=== PATIENT | male | born 1990 | race Caucasian/White ===

== ENCOUNTER 2020-12-26 19:40 | Observation (INO) | payer OTHER, SELFPAY ==
[2020-12-26 19:40] VITALS: PULSE 104; RESP 18; TEMP 36.9; O2SAT 99; BMI 26.3
[2020-12-26 19:43] VITALS: BP 138/77
[2020-12-26 20:31] LABS: ALB/GLOB Ratio 1.1 RATIO (0.9-2.4); AST(SGOT) 14 U/L (15-37); Alanine Aminotransfer ALT/SGPT 23 U/L (16-61); Albumin, Serum 4.2 g/dL (3.2-5.0); Alkaline Phosphatase 124 U/L (45-117); Anion Gap 6 (5-15); BUN 9 mg/dL (7-18); BUN/Creat Ratio 7.4 RATIO (10-20); Calcium,Total 9.1 mg/dL (8.5-10.1); Chloride 106 mmol/L (98-107); Creatinine, Serum 1.22 mg/dL (0.70-1.30); EST Glomerular Filtration Rate 74 mL/min (>60); Est Glom Filt Rate - Afr Amer 90 mL/min (>60); Estimated Creatinine Clearance 83.53 ml/min; Globulin 3.7 g/dL (2.2-4.2); Glucose 97 mg/dL (74-106); Potassium 4.2 mmol/L (3.5-5.1); Protein, Total 7.9 g/dL (6.4-8.2); Sodium Level 140 mmol/L (136-145)
[2020-12-26 20:40] LABS: Amphetamine Urine VISTA NEGATIVE (<1000 ng/mL); Barbiturate Urine VISTA NEGATIVE (< 200 ng/mL); Benzodiazepine Urine VISTA NEGATIVE (< 200 ng/mL); Cocaine Urine VISTA POSITIVE (< 300 ng/mL); Ecstacy Urine VISTA NEGATIVE (< 500 ng/mL); Methadone Urine VISTA NEGATIVE (< 300 ng/mL); PCP Urine VISTA NEGATIVE (< 25 ng/mL); THC Urine VISTA POSITIVE (< 50 ng/mL); Vista UDS pH Range 4
--- NOTE | 2020-12-26 20:54 | EX.ED.DYSGE1 ---
HPI History of Present Illness Chief Complaint: Substance Abuse Informant: patient Narrative Narrative: Patient is a 30-year-old previously healthy male who presents to the emergency department to detox for alcohol and marijuana. He states that he has been drinking heavily over the past 3 years. He typically drinks around 24 pack of beer per day as well as a few shots of liquor. He has cut back recently. He denies any other drug use except for the marijuana. He does smoke cigarettes. He states that he recently switched to third shift. The end of his shift he was getting shaky. He has never been through a detox program before in the past. Patient last drink was today. He denies any symptoms at this time. PFSH PFS Home Medications NK 12/26/20 [History Last Taken Unknown] Allergy/AdvReac Type Severity Reaction Status Date / Time No Known Allergies Allergy Verified 12/26/20 19:41 Social History Smoking Status: Current every day smoker tobacco type: cigarettes ROS ROS ED Constitutional Constitutional ED: Denies chills or fever(s) Eyes Eyes: Denies change in vision ENT ENT ED: Denies epistaxis or rhinorrhea Cardiovascular Cardiovascular: Denies chest pain or palpitations Respiratory/Chest Respiratory/Chest: Denies cough, dyspnea or dyspnea on exertion Gastrointestinal Gastrointestinal: Denies abdominal pain, diarrhea, nausea or vomiting Genitourinary Genitourinary ED: Denies dysuria, hematuria or urinary frequency Musculoskeletal Musculoskeletal: Denies back pain or neck pain Integumentary Denies rash Neurologic Neurologic: Denies dizziness, headache(s) or weakness EXAM Physical Exam Const Vital Signs: 12/26/20 19:40 12/26/20 19:43 12/26/20 20:56 Temperature 98.5 F Temperature Source Temporal Pulse Rate 104 H Respiratory Rate 18 16 Blood Pressure 138/77 H Blood Pressure Mean 97 Pulse Ox 99 Positive well nourished and well developed General Appearance ED: well developed and NAD HEENT Reports normocephalic, head/scalp atraumatic and moist mucous membranes Eyes PERRL and EOMs intact bilaterally Neck supple Chest Wall inspection of chest normal Resp normal respiratory effort and clear to auscultation bilaterally Auscultation: Negative for rales, rhonchi or wheezes Cardio regular rate, regular rhythm and no murmurs GI normal to inspection, nondistended, normoactive bowel sounds and non-tender Palpation: soft Extremity normal to inspection General Extremety ED: Negative for edema or tenderness General Extremity: Negative for edema Neuro oriented x3, CN's II-XII intact bilaterally and no sensory deficits noted Sensorium / Orientation: alert Motor Exam: strength 5/5 throughout Psych mental status grossly normal Skin no rashes or lesions noted MDM MDM MDM Narrative Medical decision making narrative: Patient presents to the emergency department to detox from alcohol. On arrival to the ED vital signs within normal limits. No acute distress. His alcohol level is 7. He is positive for cocaine and cannabinoids. He did admit to the cannabinoids but not the cocaine. Rest lab work reveal a significant acute abnormality. At this time will bring to the hospital for further evaluation and management. He otherwise has been stable throughout ED stay. Lab Data Labs: Laboratory Results - last 24 hr 12/26/20 12/26/20 12/26/20 19:46 20:05 20:05 WBC 7.7 RBC 5.62 Hgb 16.2 Hct 47.9 MCV 85.2 MCH 28.8 MCHC 33.8 RDW Std Deviation 39.2 RDW Coeff of David 12.7 Plt Count 322 MPV 9.4 Immature Gran % (Auto) 0.300 Neut % (Auto) 56.7 Lymph % (Auto) 31.4 [place] % (Auto) 6.8 Eos % (Auto) 4.3 Baso % (Auto) 0.5 Absolute Neuts (auto) 4.4 Absolute Lymphs (auto) 2.43 Nucleated RBC % 0 Sodium 140 Potassium 4.2 Chloride 106 Carbon Dioxide 28.0 Anion Gap 6 BUN 9 Creatinine 1.22 Estim Creat Clear Calc 83.53 Est GFR (MDRD) Af Amer 90 Est GFR (MDRD) Non-Af 74 BUN/Creatinine Ratio 7.4 L Glucose 97 Calcium 9.1 Total Bilirubin 0.60 AST 14 L ALT 23 Alkaline Phosphatase 124 H Total Protein 7.9 Albumin 4.2 Globulin 3.7 Albumin/Globulin Ratio 1.1 Urine Opiates Screen NEGATIVE Urine Methadone Screen NEGATIVE Ur Barbiturates Screen NEGATIVE Ur Phencyclidine Scrn NEGATIVE Ur Amphetamines Screen NEGATIVE U Methamphetamin-MDMA NEGATIVE U Benzodiazepines Scrn NEGATIVE Urine Cocaine Screen POSITIVE H U Cannabinoids Screen POSITIVE H Ur Drug Screen Comment Ethyl Alcohol 12/26/20 20:05 WBC RBC Hgb Hct MCV MCH MCHC RDW Std Deviation RDW Coeff of David Plt Count MPV Immature Gran % (Auto) Neut % (Auto) Lymph % (Auto) [place] % (Auto) Eos % (Auto) Baso % (Auto) Absolute Neuts (auto) Absolute Lymphs (auto) Nucleated RBC % Sodium Potassium Chloride Carbon Dioxide Anion Gap BUN Creatinine Estim Creat Clear Calc Est GFR (MDRD) Af Amer Est GFR (MDRD) Non-Af BUN/Creatinine Ratio Glucose Calcium Total Bilirubin AST ALT Alkaline Phosphatase Total Protein Albumin Globulin Albumin/Globulin Ratio Urine Opiates Screen Urine Methadone Screen Ur Barbiturates Screen Ur Phencyclidine Scrn Ur Amphetamines Screen U Methamphetamin-MDMA U Benzodiazepines Scrn Urine Cocaine Screen U Cannabinoids Screen Ur Drug Screen Comment Ethyl Alcohol 7.0 Discharge Plan Dx/Rx/DC Orders Clinical Impression: Alcohol abuse Disposition Disposition: Acute Care [facility]
[2020-12-26 20:56] VITALS: RESP 16
--- NOTE | 2020-12-26 20:58 | HP.PCM.HOS_ITS ---
HPI - General HPI Narrative JENNIFER ROQUE, is a 30 M with a PMH as outlined who was admitted via the ED on 12/26/2020 for acute alcohol detox. He has been drinking heavily for the past 3 years,a nd drinks about 24 pack beer a day. He also drinks a few shots of liquor. last drink was today. He has switched to the third shift at work and say s after work, he has tremors. He also uses marijuana. Vitals were stable, and urine tox was positive for cocaine and mariuana, though he denied using cocaine. Serum alcohol level was 7. He has never been through detox before he states his last drink was on the morning of admission. He has been admitted to manage for acute alcohol detox. [facility] Home Medications NK 12/26/20 [History Last Taken Unknown] Allergy/AdvReac Type Severity Reaction Status Date / Time No Known Allergies Allergy Verified 12/26/20 19:41 Social History Smoking Status: Current every day smoker tobacco type: cigarettes ROS Constitutional Constitutional: Denies anorexia, change in weight, chills, fatigue, fever(s) or malaise Eyes Eyes: Denies double vision ENT HEENT: Denies dysphagia, hearing loss, nasal congestion or nasal discharge Cardiovascular Cardiovascular: Denies chest pain, dyspnea on exertion, lightheadedness, orthopnea, palpitations or paroxysmal nocturnal dyspnea Respiratory/Chest Respiratory/Chest: Denies cough, productive cough, shortness of breath at rest or shortness of breath with exertion Gastrointestinal Gastrointestinal: Denies abdominal pain, constipation, dyspepsia, hematemesis, loose stools, nausea or vomiting Genitourinary Genitourinary: Denies burning urination or urinary frequency Musculoskeletal Musculoskeletal: Denies back pain Neurologic Neurologic: Denies confusion Psychiatric Psychiatric: Denies anxiety Endocrine Endocrinology: Denies change in body appearance Hematologic/Lymphatic Hematologic/Lymphatic: Denies anemia Vital Signs Vital Signs Vital Signs: 12/26/20 19:40 12/26/20 19:43 12/26/20 20:56 Temperature 98.5 F Temperature Source Temporal Pulse Rate 104 H Respiratory Rate 18 16 Blood Pressure 138/77 H Blood Pressure Mean 97 Pulse Ox 99 Weight Weight: 168 lb Body Mass Index (BMI) 26.3 Physical Exam Const alert, oriented x3 and no apparent distress General Appearance: cooperative HEENT normocephalic, head/scalp atraumatic, hearing grossly normal bilaterally and moist oral mucous membranes Eyes PERRL, EOMs intact bilaterally and conjunctivae normal Neck no lymphadenopathy and supple Resp normal respiratory effort and clear to auscultation bilaterally Cardio regular rate, regular rhythm, S1 normal heart sound, S2 normal heart sound and no murmurs GI normal to inspection, nondistended, normoactive bowel sounds, soft to palpation, non-tender and non-distended Extremity normal to inspection, full ROM and no clubbing, cyanosis or edema Peripheral Pulses: Yes pulses 2+ throughout Skin no rashes or lesions noted Neuro oriented x3 Sensorium / Orientation: awake and alert Psych affect normal Results Lab / Micro Data Result Diagrams: 12/26/20 20:05 12/26/20 20:05 Labs: Laboratory Results - last 24 hr 12/26/20 19:46: Urine Opiates Screen NEGATIVE, Urine Methadone Screen NEGATIVE, Ur Barbiturates Screen NEGATIVE, Ur Phencyclidine Scrn NEGATIVE, Ur Amphetamines Screen NEGATIVE, U Methamphetamin-MDMA NEGATIVE, U Benzodiazepines Scrn NEGATIVE, Urine Cocaine Screen POSITIVE H, U Cannabinoids Screen POSITIVE H, Ur Drug Screen Comment 12/26/20 20:05: WBC 7.7, RBC 5.62, Hgb 16.2, Hct 47.9, MCV 85.2, MCH 28.8, MCHC 33.8, RDW Std Deviation 39.2, RDW Coeff of David 12.7, Plt Count 322, MPV 9.4, Immature Gran % (Auto) 0.300, Neut % (Auto) 56.7, Lymph % (Auto) 31.4, [place] % (Auto) 6.8, Eos % (Auto) 4.3, Baso % (Auto) 0.5, Absolute Neuts (auto) 4.4, Absolute Lymphs (auto) 2.43, Nucleated RBC % 0 12/26/20 20:05: Sodium 140, Potassium 4.2, Chloride 106, Carbon Dioxide 28.0, Anion Gap 6, BUN 9, Creatinine 1.22, Estim Creat Clear Calc 83.53, Est GFR (MDRD) Af Amer 90, Est GFR (MDRD) Non-Af 74, BUN/Creatinine Ratio 7.4 L, Glucose 97, Calcium 9.1, Total Bilirubin 0.60, AST 14 L, ALT 23, Alkaline Phosphatase 124 H, Total Protein 7.9, Albumin 4.2, Globulin 3.7, Albumin/Globulin Ratio 1.1 12/26/20 20:05: Ethyl Alcohol 7.0 Assessment & Plan Assessment/Plan (1) Alcohol withdrawal delirium, acute, mixed level of activity: PLAN: #Acute alcohol withdrawal * admit to med surg * start on alcohol withdrawal protocol with phenobarbital * Thiamine, folic acid and multivite * Monitor CIWA score * adjunctive medication for supportive relief * #Polysubstance abuse * Patient also uses marijuana and urine tox was positive for cocaine. Counseled to quit. * DVT prophylaxis: Low risk. Encouraged to ambulate. Charges/Coding Visit Charges Inpatient E&M: 65691 Init Hosp L3
[2020-12-26 21:23] VITALS: BP 139/79; PULSE 80; RESP 16; TEMP 36.7; O2SAT 98
[2020-12-26 21:39] VITALS: BMI 24.7
[2020-12-26 21:44] VITALS: BP 124/77; PULSE 81; RESP 16; TEMP 36.8; O2SAT 99
[2020-12-26] MEDS: Phenobarbital 32.4 MG Tablet 64.8 MG PO (22:44)
[2020-12-27] MEDS: Phenobarbital 32.4 MG Tablet 64.8 MG PO ×6 (02:25→21:47)
[2020-12-27 02:30] VITALS: BP 118/70; PULSE 60; RESP 16; TEMP 36.7; O2SAT 99
--- NOTE | 2020-12-27 06:52 | PN.HOSP_ITS ---
Subjective Subjective Patient with no acute events following admission initiation of alcohol withdrawal protocol. He notes tremors have significantly lessened and that he slept well. Discussed frankly his urine drug screen with positive cocaine and he denies knowledge of using. He does state that he recently transition to a purchases cannabis from and does smoke this frequently. Discussed at length importance of clean status. Patient denies fevers, chills, nausea, emesis, abdominal pain, chest pain or dyspnea. Objective Data Objective Data Vital Signs: Vital Signs Temp Pulse Resp BP Pulse Ox 98.1 F 60 16 118/70 99 12/27/20 02:30 12/27/20 02:30 12/27/20 02:30 12/27/20 02:30 12/27/20 02:30 Oxygen Delivery Method Room Air Weight: 158 lb Body Mass Index (BMI) 24.7 Lab / Micro Data Result Diagrams: 12/26/20 20:05 12/26/20 20:05 Labs: Laboratory Results - last 24 hr 12/26/20 19:46: Urine Opiates Screen NEGATIVE, Urine Methadone Screen NEGATIVE, Ur Barbiturates Screen NEGATIVE, Ur Phencyclidine Scrn NEGATIVE, Ur Amphetamines Screen NEGATIVE, U Methamphetamin-MDMA NEGATIVE, U Benzodiazepines Scrn NEG ATIVE, Urine Cocaine Screen POSITIVE H, U Cannabinoids Screen POSITIVE H, Ur Drug Screen Comment 12/26/20 20:05: WBC Cancelled, Corrected WBC Cancelled, RBC Cancelled, Hgb Cancelled, Hct Cancelled, MCV Cancelled, MCH Cancelled, MCHC Cancelled, RDW Std Deviation Cancelled, RDW Coeff of David Cancelled, Plt Count Cancelled, MPV Ca ncelled, Immature Gran % (Auto) Cancelled, Neut % (Auto) Cancelled, Lymph % (Auto) Cancelled, [place] % (Auto) Cancelled, Eos % (Auto) Cancelled, Baso % (Auto) Cancelled, Absolute Neuts (auto) Cancelled, Absolute Lymphs (auto) Cancelled, Total Counted Cancelled, Neutrophils % (Manual) Cancelled, Band Neutrophils % Cancelled, Lymphocytes % (Manual) Cancelled, Monocytes % (Manual) Cancelled, Eosinophils % (Manual) Cancelled, Basophils % (Manual) Cancelled, Metamyelocytes % Cancelled, Myelocytes % Cancelled, Promyelocytes % Cancelled, Blast Cells % Cancelled, Plasma Cell % (Manual) Cancelled, Other Cells % Cancelled, Nucleated RBC % Cancelled, Nucleated RBCs/100 WBC Cancelled, Differential Comment Cancelled, Diff Path Review Cancelled, Hypersegmented Neuts Cancelled, Atypical Lymphocytes Cancelled, Reactive Lymphocytes Cancelled, Smudge Cells Cancelled, Toxic Granulation Cancelled, Toxic Vacuolation Cancelled, Dohle Bodies Cancelled, [place] Rods Cancelled, Platelet Estimate Cancelled, Plt Morphology Comment Cancelled, RBC Morphology Cancelled, Polychromasia Cancelled, Hypochromasia Cancelled, Poikilocytosis Cancelled, Basophilic Stippling Cancelled, Anisocytosis Cancelled, Microcytosis Cancelled, Macrocytosis Cancelled, Spherocytes Cancelled, Sickle Cells Cancelled, Target Cells Cancelle d, Tear Drop Cells Cancelled, Ovalocytes Cancelled, Stomatocytes Cancelled, [place] Bodies Cancelled, [place] Cells Cancelled, Bite Cells Cancelled, Crenated Cell Cancelled, Acanthocytes (Spur) Cancelled, Rouleaux Cancelled, Schistocytes Cancelled 12/26/20 20:05: Sodium 140, Potassium 4.2, Chloride 106, Carbon Dioxide 28.0, Anion Gap 6, BUN 9, Creatinine 1.22, Estim Creat Clear Calc 83.53, Est GFR (MDRD) Af Amer 90, Est GFR (MDRD) Non-Af 74, BUN/Creatinine Ratio 7.4 L, Glucose 97, Calcium 9.1, Total Bilirubin 0.60, AST 14 L, ALT 23, Alkaline Phosphatase 124 H, Total Protein 7.9, Albumin 4.2, Globulin 3.7, Albumin/Globulin Ratio 1.1 12/26/20 20:05: Ethyl Alcohol 7.0 Physical Exam Narrative Physical Examination: General: Awake, alert, oriented x 3 and cooperative, seated upright in the medical surgical bed in no apparent distress. Skin: Normal color, normal turgor, no icterus, no cyanosis. HEENT: AT/NC, EOMI, PERRLA, MMM. Lungs: CTA bilaterally, moderate effort, mild decrease BL bases, no rales, ronchi or wheezing. Heart: Regular rate and rhythm; no gallop, rub audible. Abdomen: Soft, NTTP, ND, normal BS. Extremities: No cyanosis, clubbing, or edema. Neurological: Patient awake, alert, oriented as noted, cognitive function intact; pupils equally reactive to light and accommodation, cranial nerves II- XII grossly normal, moving all 4 extremities, no focal deficits, strength preserved, no evidence of any withdrawal symptoms including tremors. Psychiatric: Affect appears normal, extremely tearful, no acute evidence of depressive or anxiety feelings. Assessment & Plan Assessment/Plan (1) Alcohol withdrawal delirium, acute, mixed level of activity: PLAN: The patient is a 30 y/o M w/ PMHx: EtOH abuse (24 pack beer daily x 3 years), Cannabis usage, Tobacco use who presents to the [facility] ED on 12/26/20 with acute EtOH withdrawal. 1. Acute EtOH Withdrawal: The patient was mid to medical surgical floor, routine labs obtained in the ED upon presentation given interest in sobriety. Patient was initiated and continued on protocol with taper course of Phenobarbital, scheduled gabapentin for seizure prophylaxis, as needed Catapres, Bentyl, Vistaril, IV fluids, IV antiemetics, Tylenol as needed for pain. Case management consulted for assistance for transition to next level of rehabilitation care. Mag, phos levels will be requested as not obtained upon presentation. Maintain on CIWA protocol concurrently. 2. Polysubstance abuse: Patient denies knowingly using any cocaine, UDS with cannabis and cocaine noted. Discussed frankly and strongly encouraged clean status including avoidance of cannabis if able. Did discuss that cannabis especially if already rolled is often laced with agents. 3. Tobacco Abuse: Encouraged cessation, inpatient consultation per RT, NR if desired. 4. DVT prophylaxis: Low risk, encourage ambulation. Charges/Coding Visit Charges Inpatient E&M: 81744 Subs Hosp L2
[2020-12-27 07:20] LABS: Phosphorus 3.4 mg/dL (2.5-4.9)
[2020-12-27 08:42] VITALS: BP 122/61; PULSE 83; RESP 18; TEMP 36.9; O2SAT 100
[2020-12-27] MEDS: Multivitamins,Therapeutic Tablet 1 TABLET PO (08:46)
[2020-12-27] MEDS: Folic Acid 1 MG Tablet PO (08:46)
[2020-12-27] MEDS: Thiamine Hydrochloride 100 MG Tablet PO (08:46)
[2020-12-27 08:50] VITALS: PULSE 60
--- NOTE | 2020-12-27 09:30 | ADDICTION ---
This web content writer met with PT to conduct ASAM, MSE, AUDIT assessments and to plan for d/c. All assessments completed. PT requesting referral to [facility]. This web content writer will make referral to Critical access hospital and will provide coordination, as needed.
[2020-12-27 14:00] VITALS: BP 118/61; PULSE 82; RESP 16; TEMP 36.9; O2SAT 100
[2020-12-27 18:29] VITALS: BP 123/77; PULSE 68; RESP 16; TEMP 36.8; O2SAT 100
[2020-12-27 21:43] VITALS: BP 111/67; PULSE 56; RESP 18; TEMP 36.9; O2SAT 100
[2020-12-28] MEDS: Phenobarbital 32.4 MG Tablet 64.8 MG PO ×6 (02:34→22:12)
[2020-12-28 02:57] VITALS: BP 118/77; PULSE 63; RESP 18; TEMP 36.3; O2SAT 100
--- NOTE | 2020-12-28 06:18 | PN.HOSP_ITS ---
Subjective Subjective Patient with no acute events overnight per self and per nursing report. Patient only complaint is nicotine craving with request of alteration to nicotine administration. Patient denies any current withdrawal symptoms and notes he is feeling significantly improved from his initial presentation. Patient denies fevers, chills, nausea, emesis, abdominal pain, chest pain or dyspnea. Objective Data Objective Data Vital Signs: Vital Signs Temp Pulse Resp BP Pulse Ox 97.4 F L 63 18 118/77 100 12/28/20 02:57 12/28/20 02:57 12/28/20 02:57 12/28/20 02:57 12/28/20 02:57 Oxygen Delivery Method Room Air Weight: 158 lb Body Mass Index (BMI) 24.7 Lab / Micro Data Result Diagrams: 12/26/20 20:05 12/26/20 20:05 Labs: Laboratory Results - last 24 hr 12/26/20 20:08: Phosphorus 3.4, Magnesium 2.0 Physical Exam Narrative Physical Examination: General: Awake, alert, oriented x 3 and cooperative, seated upright in the [facility] chair, no acute distress. Skin: Normal color, normal turgor, no icterus, no cyanosis. HEENT: AT/NC, EOMI, PERRLA, MMM. Lungs: CTA bilaterally, moderate effort, mild decrease BL bases, no rales, ronchi or wheezing. Heart: Regular rate and rhythm; no gallop, rub audible. Abdomen: Soft, NTTP, ND, normal BS. Extremities: No cyanosis, clubbing, or edema. Neurological: Patient awake, alert, oriented as noted, cognitive function intact; pupils equally reactive to light and accommodation, cranial nerves II- XII grossly normal, moving all 4 extremities, no focal deficits, strength preserved, no evidence of any withdrawal symptoms including tremors. Psychiatric: Affect appears normal, extremely tearful, no acute evidence of depressive or anxiety feelings. Assessment & Plan Assessment/Plan (1) Alcohol withdrawal delirium, acute, mixed level of activity: PLAN: The patient is a 30 y/o M w/ PMHx: EtOH abuse (24 pack beer daily x 3 years), Cannabis usage, Tobacco use who presents to the [facility] ED on 12/26/20 with acute EtOH withdrawal. 1. Acute EtOH Withdrawal: The patient was mid to medical surgical floor, routine labs obtained in the ED upon presentation given interest in sobriety. Patient was initiated and continued on protocol with taper course of Phenobarbital, scheduled gabapentin for seizure prophylaxis, as needed Catapres, Bentyl, Vistaril, IV fluids, IV antiemetics, Tylenol as needed for pain. Case management consulted for assistance for transition to next level of rehabilitation care. Mag, phos levels normal. Maintain on CIWA protocol concurrently. 2. Polysubstance abuse: Patient denies knowingly using any cocaine, UDS with cannabis and cocaine noted. Discussed frankly and strongly encouraged clean status including avoidance of cannabis if able. Did discuss that cannabis especially if already rolled is often laced with agents. 3. Tobacco Abuse: Encouraged cessation, inpatient consultation per RT, NR changed per patient request, continued patch as well as as needed low-dose gum for breakthrough cravings. 4. DVT prophylaxis: Low risk, encourage ambulation. Charges/Coding Visit Charges Inpatient E&M: 05048 Subs Hosp L2
[2020-12-28] MEDS: Multivitamins,Therapeutic Tablet 1 TABLET PO (08:35)
[2020-12-28] MEDS: Thiamine Hydrochloride 100 MG Tablet PO (08:35)
[2020-12-28] MEDS: Folic Acid 1 MG Tablet PO (08:35)
[2020-12-28 10:00] VITALS: BP 131/81; PULSE 71; RESP 16; TEMP 36.9; O2SAT 100
[2020-12-28] MEDS: Nicotine Polacrilex 2 MG GUM PO (12:08)
[2020-12-28 14:17] VITALS: BP 103/50; PULSE 56; RESP 16; TEMP 36.6; O2SAT 97
[2020-12-28 22:15] VITALS: BP 114/66; PULSE 55; RESP 16; TEMP 36.8; O2SAT 96
[2020-12-29] MEDS: Phenobarbital 32.4 MG Tablet 64.8 MG PO ×2 (02:03→06:01)
[2020-12-29 03:49] VITALS: BP 117/64; PULSE 59; RESP 18; TEMP 36.7; O2SAT 95
[2020-12-29 06:43] VITALS: BP 121/63; PULSE 56; RESP 18; TEMP 36.7; O2SAT 96
--- NOTE | 2020-12-29 09:04 | DCINST_ITS ---
Discharge Instructions Diet Discharge Diet: No restrictions Activity Discharge Activity: Return to Normal Activity Dressing / Incision Call your doctor if you observe: Inability to urinate, Shortness of breath, Dizziness, Fainting spells, Swelling in the ankles, Chest pain and Increased palpitations (irregular heartbeat) Follow Up Care Please Follow Up With: [facility] When: Follow-up per their recent admission set-up. Test Results: Test results from this visit will be discussed in further detail a t your follow-up appointment, if applicable. Discharge Plan Admission Admit Date/Time: 12/26/20 21:05 Primary Reason for Your Visit: Acute EtOH Withdrawal, Polysubstance abuse, Tobacco abuse Attending Provider: Ariadna Kat Primary Care Provider: Care Physician,No Primary Instructions Patient Instructions: Finding the Right Rehab ..., Signs of Marijuana Addiction, Alcohol Addiction, Understanding Marijuana Abuse Discharge Orders/Prescriptions Prescriptions: No Action NK RF: 0 Referrals / Follow Up: Care Physician,No Primary [Primary Care Provider] - Disposition Disposition (needs filled in before D/C Order can be placed): Home, Self Care
--- NOTE | 2020-12-29 09:05 | DS.PCM_ITS ---
Providers Date of Admission: 12/26/20 Primary Care Physician: No Primary Care Phys Reason For Visit: ACUTE ALCOHOL WITHDRAWL Diagnosis Discharge Diagnosis (1) Alcohol withdrawal delirium, acute, mixed level of activity: Status: Acute Code(s): F10.231 - Alcohol dependence with withdrawal delirium Medications at Discharge Home Medications NK 12/26/20 Hospital Course Operations None Procedures None Summary of Care Provided Minutes Spent on Discharge: 35 Hospital Course: Discharge Diagnoses: 1. Acute EtOH Withdrawal 2. Polysubstance abuse 3. Tobacco Abuse Discharge Summary: The patient is a 30 y/o M w/ PMHx: EtOH abuse (24 pack beer daily x 3 years), Cannabis usage, Tobacco use who presents to the [facility] ED on 12/26/20 with acute EtOH withdrawal. Patient admitted to the medical surgical floor, routine labs obtained in the ED upon presentation given interest in sobriety. Patient was initiated and continued on protocol with taper course of Phenobarbital, scheduled gabapentin for seizure prophylaxis, as needed Catapres, Bentyl, Vistaril, IV fluids, IV antiemetics, Tylenol as needed for pain. Case management consulted for assistance for transition to next level of rehabilitation care. Mag, phos levels normal. Patient denied knowingly using any cocaine, UDS with cannabis and cocaine noted. Discussed frankly and strongly encouraged clean status including avoidance of cannabis if able. Did discuss that cannabis especially if already rolled is often laced with agents. Patient clinically improved and was discharged in stable condition with continued [facility] involvement upon discharge. Discharge Time: > 35 Minutes DAY OF DISCHARGE PROGRESS NOTE: Subjective: Patient without acute event overnight per self and nursing report. Patient notes he slept well without any withdrawal symptoms and is eager for discharge. Patient denies fever, chills, nausea, emesis, abdominal pain, chest pain or dyspnea. Patient agreeable to discharge to home given completion of regimen and clinical improvement with no withdrawal symptoms. Patient will be discharged with follow-up with 180, addiction services for continued sobriety encouragement. Objective: T 98, heart rate 56, BP 121/63, respiratory rate 18, 96% room air. Physical Examination: General: Awake, alert, oriented x 3 and cooperative, seated upright in the [place] bedside chair, no acute distress. Skin: Normal color, normal turgor, no icterus, no cyanosis. HEENT: AT/NC, EOMI, PERRLA, MMM. Lungs: CTA bilaterally, moderate effort, mild decrease BL bases, no rales, ronchi or wheezing. Heart: Regular rate and rhythm; no gallop, rub audible. Abdomen: Soft, NTTP, ND, normal BS. Extremities: No cyanosis, clubbing, or edema. Neurological: Patient awake, alert, oriented as noted, cognitive function intact; pupils equally reactive to light and accommodation, cranial nerves II- XII grossly normal, moving all 4 extremities, no focal deficits, strength preserved. Psychiatric: Affect appears normal, no acute evidence of depressive or anxiety feelings. Assessment and Plan: Please see hospital summary above. Weight / BMI Weight Weight: 158 lb Body Mass Index (BMI) 24.7 ABG / Lab / Microbiology Data Result Diagrams: 12/26/20 20:05 12/26/20 20:05 D/C Instructions Discharge Diet: No restrictions Call your doctor if you observe: Inability to urinate, Shortness of breath, D izziness, Fainting spells, Swelling in the ankles, Chest pain and Increased palpitations (irregular heartbeat) Please Follow Up With: [facility] When: Follow-up per their recent admission set-up. Meaningful Use Info Meaningful Use Diagnoses (Choose all that apply): None applicable Discharge Plan Admission Admit Date/Time: 12/26/20 21:05 Primary Reason for Your Visit: Acute EtOH Withdrawal, Polysubstance abuse, Tobacco abuse Attending Provider: Ariadna Kat Primary Care Provider: Care Physician,No Primary Instructions Patient Instructions: Finding the Right Rehab ..., Signs of Marijuana Addiction, Alcohol Addiction, Understanding Marijuana Abuse Discharge Orders/Prescriptions Prescriptions: No Action NK RF: 0 Referrals / Follow Up: Care Physician,No Primary [Primary Care Provider] - Disposition Disposition (needs filled in before D/C Order can be placed): Home, Self Care Charges/Coding Visit Charges Inpatient E&M: 34671 Disch Hosp
== END 2020-12-29 09:17 | disposition home or self-care (01) | DRG 897 ==
LOC: ED 20:17 → MS3 21:21
PROVIDERS: Admitting Provider Student in an Organized Health Care Education/Training Program; Emergency Provider Emergency Medicine; Visit Provider Family Medicine
DX: F10.231 Alcohol dependence with withdrawal delirium (principal); F19.10 Other psychoactive substance abuse, uncomplicated; F17.210 Nicotine dependence, cigarettes, uncomplicated; F12.10 Cannabis abuse, uncomplicated; Y90.0 Blood alcohol level of less than 20 mg/100 ml
CPT/HCPCS: 80053; 80307; 82077; 83735; 84100; 99218; 99285; A4216; G0378